=== PATIENT | male | born 1985 | race Caucasian/White ===

== ENCOUNTER 2022-09-09 19:10 | Emergency (ER) | payer OTHER, SELFPAY ==
[2022-09-09 19:52] VITALS: BP 117/67; PULSE 107; RESP 20; TEMP 39.6; O2SAT 96; BMI 23.5
[2022-09-09 20:37] LABS: Strep A DNA Probe* NOT DETECTED (Not Detectd)
[2022-09-09 20:38] VITALS: TEMP 37.9
[2022-09-09] MEDS: ACETAMINOPHEN 500 MG TABLET 1000 MG PO (20:38)
--- NOTE | 2022-09-09 20:40 | PC.NURSE ---
patient temp assessed agian in waiting room. 100.3, Tylenol given per EMAR.
[2022-09-09 20:47] LABS: PCR FLU A Negative PCR FLU A (Negative); PCR FLU B Negative PCR FLU B (Negative)
[2022-09-09 20:51] LABS: SARS PCR* POSITIVE SARS-CoV-2 (Negative)
[2022-09-09 21:33] VITALS: BP 113/67; PULSE 84; RESP 16; TEMP 38.3; O2SAT 95
--- NOTE | 2022-09-09 22:33 | ED_ITS ---
HPI - General Adult General Chief complaint: Fever Stated complaint: Fever Headache Cough Time Seen by Provider: 09/09/22 22:01 Source: patient Mode of arrival: ambulatory Limitations: no limitations History of Present Illness HPI narrative: 37-year-old male smoker presents to the emergency department with headache, fatigue and fever. He is not COVID vaccinated. Symptoms started about 36 hours ago. He has taken Tylenol once and ibuprofen once in the course of this day and half illness in his symptoms do return after taking the medication which is temporarily helpful. He reports that he does not know how much medicine is safe to take. No shortness of breath, no neurological changes or seizures associated with this fever. No known illness exposures or pertinent travel. He does not have a history of asthma or chronic lung disease. He smokes less than half of a pack per day. No GI symptoms, nausea, vomiting. No productive cough or chest pain. No dizziness, syncope or other worrisome symptoms. Past medical history he states is benign, denies any major long-term health problems. He told me that he does not take any prescription medications but Suboxone as listed in his chart. Socially he smokes tobacco but no other agents. Denies any recent alcohol. No history of liver kidney disease. ROS notable for the generalized, had symptoms as described above, otherwise denies times 12 systems. Related Data Home Medications Medication Instructions Recorded Confirmed buprenorphine 8 mg-naloxone 2 mg 5 mg sublingual DAILY 09/09/22 09/09/22 sublingual film Previous Rx's Medication Instructions Recorded nirmatrelvir 300 mg (150 mg See Rx Instructions PO .COMPLEX 09/09/22 x2)-ritonavir 100 mg tablet,dose #30 ea pack(EUA) (Paxlovid) Allergies Allergy/AdvReac Type Severity Reaction Status Date / Time No Known Drug Allergies Allergy Verified 09/09/22 19:51 Exam Const: Vital Signs, click to edit/add: Vital Signs - 24 hr 09/09/22 19:52 09/09/22 20:38 09/09/22 21:33 Temperature 103.3 F H 100.3 F H 101.0 F H Pulse Rate [Right Pulse Oximeter] 107 H 84 Respiratory Rate 20 16 Blood Pressure [Ri ght Upper Arm] 117/67 113/67 Pulse Oximetry 96 95 Oxygen Delivery Me thod Room Air Room Air Documenting provider has reviewed patient's vital signs: yes Common normals: no apparent distress General appearance: cooperative, comfortable and well kempt HENMT: Common normals: normocephalic and TM's normal bilaterally Head and scalp: normocephalic Face and sinus: normal facial exam Tympanic membrane: TM's normal bilaterally Mouth: oral and palatal mucosa normal Teeth and gingiva: abnormal tooth and associated gingiva Eye: Common normals: conjunctivae normal General eye: normal appearance of both eyes Conjunctiva: conjunctiva(e) normal Neck & C-Spine: Common normals: full ROM and no lymphadenopathy Resp: Common normals: normal respiratory effort, no use of accessory muscles and clear to auscultation bilaterally Effort & inspection: able to speak in complete sentences Auscultation: clear to auscultation bilaterally Cardio: Common normals: regular rate, regular rhythm, S1 normal heart sound, S2 normal heart sound and no murmurs Rate: regular rate Rhythm: regular rhythm Heart sounds: S1 normal and S2 normal Neuro: Speech: speech normal Gait (neuro): normal gait Motor exam: strength 5/5 throughout, no tremor noted and no movement abnormalities noted Psych: Common normals: speech normal Appearance: well kempt Speech: normal speech Mood and affect: euthymic mood Insight: insight good Judgement: judgment good Skin: Common normals: no rashes or lesions noted General skin exam: no rashes or lesions noted Course Vital Signs Vital signs: Initial Vital Signs Temperature 103.3 F H 09/09/22 19:52 Temperature Source Temporal Artery Scan 09/09/22 19:52 Pulse Rate 107 H 09/09/22 19:52 Pulse Rhythm Regular 09/09/22 19:52 Respiratory Rate 20 09/09/22 19:52 Blood Pressure 117/67 09/09/22 19:52 Blood Pressure Mean 83 09/09/22 19:52 Blood Pressure Position Sitting 09/09/22 19:52 Pulse Oximetry 96 09/09/22 19:52 Oxygen Delivery Method Room Air 09/09/22 19:52 Vital Signs Temperature 103.3 F H 09/09/22 19:52 Pulse Rate 107 H 09/09/22 19:52 Respiratory Rate 20 09/09/22 19:52 Blood Pressure 117/67 09/09/22 19:52 Pulse Oximetry 96 09/09/22 19:52 Oxygen Delivery Method Room Air 09/09/22 19:52 Temperature 101.0 F H 09/09/22 21:33 Pulse Rate 84 09/09/22 21:33 Respiratory Rate 16 09/09/22 21:33 Blood Pressure 113/67 09/09/22 21:33 Pulse Oximetry 95 09/09/22 21:33 Oxygen Delivery Method Room Air 09/09/22 21:33 Medical Decision Making MDM Narrative Medical decision making narrative: COVID test positive. Symptoms consistent. Patient was given Tylenol in the waiting room and his fever did improve, tachycardia improved. No hypoxia or tachypnea. No signs of severe illness. Together, we discuss management with Wilner, he does accepted offer for this. Counseled on quarantine for 5 days, appropriate dosing of Tylenol and ibuprofen as needed for symptom control. Also discussed alarm symptoms that would warrant ED presentation and he verbalizes understanding and agreement. Lab Data Lab results reviewed: Yes I reviewed the patient's lab results Labs: Lab Results 09/09/22 Range/Units 20:00 SARS-CoV-2 (PCR) POSITIVE SARS-CoV-2 A (Negative) Influenza Type A (PCR) Negative PCR FLU A (Negative) Influenza Type B (PCR) Negative PCR FLU B (Negative) Group A Strep DNA NOT DETECTED (Not Detectd) Discharge Plan Discharge Clinical Impression: COVID Patient Disposition: Home, Self-Care Condition: Stable Instructions: COVID-19 (Coronavirus Disease 2019) (ED) Additional Instructions: As we discussed, you have tested positive for COVID. Your symptoms do seem consistent with this diagnosis as well. We discussed medications that may shorten the intensity and duration of your illness. I have sent a prescription for Paxlovid to your pharmacy. Pick this up in the morning and take as directed twice daily. You do need to quarantine until Tuesday morning. He should come back to the emergency department if you are so short of breath that you can get from her bed to the bathroom or are so dizzy that you cannot like take care of your basic needs without severe dizziness or weakness. Your symptoms are likely to last about a week of this intensity, full recovery takes about 2 weeks total. This may be a little longer for you because of your smoking history. You can minimize the headache, fever and body aches by using Tylenol 1000 mg every 6 hours as needed and or ibuprofen 600 mg every 6 hours. Keep up with these medications to reduce the chance of rebound. The prescription medication does cause a metallic taste in your mouth but very few other side effects. Activity Level: Activity as Tolerated Discharge Diet: Regular Prescriptions: New Paxlovid (EUA) 300 mg (150 mg x 2)-100 mg tablets,dose pack See Rx Instructions .ROUTE .COMPLEX Qty: 30 0RF Rx Instructions: take TWO 150 mg tablets of nirmatrelvir with ONE 100 mg tablet of ritonavir twice daily for 5 days No Action buprenorphine-naloxone 8-2 mg film 5 mg sublingual DAILY Follow Up/Referrals: Provider,Not a Local [Primary Care Provider] - Stand Alone Forms: [facility] Info Instructions
[2022-09-09 22:54] VITALS: BP 113/73; PULSE 76; RESP 22; TEMP 38
== END 2022-09-09 22:55 | disposition home or self-care (01) ==
LOC: ED 22:34
PROVIDERS: Emergency Provider Family Medicine
DX: U07.1 COVID-19 (principal)
CPT/HCPCS: 87631; 87651; 99283; A9270